=== PATIENT | female | born 1940 | race Caucasian/White ===

== ENCOUNTER 2017-02-19 08:48 | Day surgery (SDC) | payer MEDICARE, OTHER ==
[~2017-02-19 08:48] MED LIST: Lactated Ringers 1,000 ML IV SCH; Lidocaine 1%/Sod Bicarbonate in NS 8.4% 1 ML Syringe PRN; Sodium Chloride 0.9% 10 ML Syringe FLUSH PRN
--- NOTE | 2017-02-19 09:33 | PCM.PREANE ---
Preanesthetic Assessment - Anesthesia/Transfusion/Family Hx Family History of Anesthesia Reaction: No Transfusion History: No Prior Transfusion(s) - Review of Systems Pulmonary: No Symptoms (Quit smoking in 1981) Cardiovascular: No Symptoms (History of HTN) Other: Reports: Thyroid Problems (hypothyroid) - Physical Assessment NPO Status Date: 02/18/17 NPO Status Time: 18:00 Pulse: 65 O2 Sat by Pulse Oximetry: 94 Respiratory Rate: 14 Blood Pressure: 156/71 Temperature: 37.2 C Height: 1.55 m Weight: 62 kg ASA Class: 2 Mental Status: Alert & Oriented x3 - Lab Values: MRSA screen negative; All other labs reviewed and noted and within acceptable ranges to proceed with scheduled procedure. 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) Other OB/BYN History: breast surgery Musculoskeletal History: Reports: None Neurological History: Reports: None Psychiatric History: Reports: None Endocrine/Metabolic History: Reports: Hypothyroidism Hematologic History: Reports: None Immunologic History: Reports: None Oncologic (Cancer) History: Reports: None Dermatologic History: Reports: None - Past Surgical History Head Surgeries/Procedures: Reports: None HEENT Surgical History: Reports: Cataract Surgery, Tonsillectomy Cardiovascular Surgical History: Reports: None Respiratory Surgical History: Reports: None GI Surgical History: Reports: Colonoscopy Female Surgical History: Reports: None Male Surgical History: Reports: None Endocrine Surgical History: Reports: None Neurological Surgical History: Reports: None Musculoskeletal Surgical History: Reports: Shoulder Surgery Oncologic Surgical History: Reports: None Dermatological Surgical History: Reports: None - SUBSTANCE USE Smoking Status *Q: Former Smoker Second Hand Smoke Exposure: No Recreational Drug Use History: No - HOME MEDS Home Medications: Home Meds Acetaminophen/HYDROcodone [[place] 325-5 MG] 1 - 2 tab PO Q6H PRN #10 tablet 02/18 [Rx] Budesonide [Rhinocort Allergy] 2 spray NASBOTH DAILY 02/18/17 [History] Cetirizine HCl [Zyrtec] 10 mg PO DAILY 02/18/17 [History] Levothyroxine [Synthroid] 50 mcg PO MOTUWETHFRSA 02/18/17 [History] Levothyroxine [Synthroid] 100 mcg PO SHORE 02/18/17 [History] Losartan [Cozaar] 50 mg PO DAILY 02/18/17 [History] Tiotropium [Spiriva HandiHaler] 1 puff INH DAILY 02/18/17 [History] Vit C/Vit E Ac/Lut/Mineral 1 [Prosight with Lutein] 1 cap PO DAILY 02/18/17 [ History] - CURRENT (IN HOUSE) MEDS Current Meds: Current Medications Lactated Ringer's (Ringers, Lactated) 1,000 mls @ 125 mls/hr IV ASDIRECTED REE Stop: 02/19/17 23:00 Lidocaine/Sodium Bicarbonate (Buffered Lidocaine 1% In Ns 8.4%) 0.25 ml .XX ONETIME PRN PRN Reason: Prior to IV Start Stop: 02/19/17 18:00 Sodium Chloride (Saline Flush) 10 ml FLUSH ASDIRECTED PRN PRN Reason: Keep Vein Open Stop: 02/19/17 18:00
[2017-02-19] MEDS ORDERED: Bupivacaine 0.25% 30 ML SDV ONE (10:45)
[2017-02-19] MEDS ORDERED: Lidocaine 1% 30 ML SDV ONE (10:45)
[2017-02-19 12:41] VITALS: BP 159/69
--- NOTE | 2017-02-22 22:08 | PCM.OPNOTE ---
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
--- NOTE | 2017-02-22 22:59 | OR ---
DATE OF OPERATION: 02/19/2017 SURGEON: Lucas Mcintyre MD OPERATION PERFORMED: Left hand carpal tunnel release. PREOPERATIVE DIAGNOSIS: Left wrist median nerve compression neuropathy. POSTOPERATIVE DIAGNOSIS: Left wrist median nerve compression neuropathy. ANESTHESIA: Local only. DIRECTOR OF CULTURE: Nellie Myers PA-C. ANESTHESIA PROVIDER: None. Reason an patient observation assistant warranted was for retraction and closure ESTIMATED BLOOD LOSS: 5 mL. COMPLICATIONS: None. CONDITION: Stable. DESCRIPTION OF PROCEDURE: The patient was identified in the preoperative holding area. Proper site was marked and identified by the surgeon. The patient was taken back to the operative theater where the left wrist was sterilely prepped and draped in the usual sterile fashion. OR time-out was performed. The patient did not receive antibiotics as it was not indicated for soft tissue hand procedure. At this time, the left upper extremity was exsanguinated with an Esmarch. An Esmarch was then used on the forearm as a tourniquet. 1% lidocaine without epinephrine and 0.25% Marcaine without epinephrine was injected around the palmar cutaneous branch of the median nerve roughly 10 cm proximal to the proximal wrist crease. Next, the incisional site was anesthetized as well using Rojo's cardinal line and ulnar border of the fourth digit. Once the patient was anesthetized, incision was made. Blunt dissection was taken down to the palmar cutaneous fascia. Palmar cutaneous fascia was then incised with a [place] blade. Transverse carpal ligament was identified and a small rent was made in the transverse carpal ligament. A [place] elevator was then placed deep to the transverse carpal ligament and this was then resected all the way down just stopping short of the palmar arch and fat. At this time, attention was turned proximal. Tenotomy scissors was used. Ulnar tips were released at the forearm fascia and the transverse carpal ligament. At this time, it was found to be adequately released both proximally and distally. Adequate saline was then irrigated through the wound. 4-0 nylon simple suture was used for closure of the skin. The patient had sterile soft dressing applied and sent to the PACU in stable condition. MMODAL /[id number]
== END 2017-02-19 12:25 | disposition home or self-care (01) ==
LOC: JD.SDS 08:48
PROVIDERS: ATTEND Orthopaedic Surgery
DX: G56.02 Carpal tunnel syndrome, left upper limb (principal); I10 Essential (primary) hypertension; Z88.0 Allergy status to penicillin; Z91.048 Other nonmedicinal substance allergy status; Z98.890 Other specified postprocedural states; Z79.899 Other long term (current) drug therapy; Z87.891 Personal history of nicotine dependence
CPT/HCPCS: 64721; J3490

== ENCOUNTER 2019-02-22 15:17 | Emergency (ER) | payer MEDICARE, OTHER ==
[2019-02-22 15:27] VITALS: BP 152/80; PULSE 95
[2019-02-22] MEDS ORDERED: Sodium Chloride 0.9% 10 ML Syringe FLUSH PRN (15:56)
--- NOTE | 2019-02-22 15:57 | EDM.PDOC ---
<Jayleen Bangura - Last Filed: 02/22/19 16:28> ED HPI GENERAL MEDICAL PROBLEM - General Chief Complaint: Respiratory Problem Stated Complaint: RESPIRATORY ISSUES Time Seen by Provider: 02/22/19 15:27 Source of Information: Reports: Patient History Limitations: Reports: No Limitations - History of Present Illness INITIAL COMMENTS - FREE TEXT/NARRATIVE: Charline is a 78 year old female who presents to the ED for evaluation of a productive cough. She has had the cough for 2 months, along with the yellow sputum. She had a CT done 8 days ago on 02/14/19 that showed she had pneumonia. She was treated with levaquin, which she just finished today and there has been no improvement in her chest congestion and cough. She is using a duoneb nebulizer every 3 hours with only a brief period of relief. She feels very short of breath and earlier today felt that she couldn't breath. Patient also reports some sinus congestion, sore throat and chills. She denies any N/V/D. She is a past smoker who quit 30 years ago with a history of COPD. Currently she is not on any oxygen at home for her COPD. Onset: Gradual Onset Date: 12/23/18 Duration: Week(s):, Constant Location: Reports: Head, Chest Severity: Moderate Improves with: Reports: None Associated Symptoms: Reports: cough w sputum, Fever/Chills, Shortness of Breath Treatments LUMBER STRAIGHTENED: Reports: Breathing Treatments, Other (see below) Chest Pain Score (Numeric/FACES): 8 - Related Data Allergies Allergy/AdvReac Type Severity Reaction Status Date / Time nickel Allergy Rash Verified 02/22/19 15:27 Penicillins Allergy Swelling Verified 02/22/19 15:27 metals Allergy Rash Uncoded 02/22/19 15:27 Home Meds: Home Meds Budesonide [Rhinocort Allergy] 2 spray NASBOTH DAILY 02/18/17 [History] Losartan [Cozaar] 50 mg PO DAILY 02/18/17 [History] Tiotropium [Spiriva HandiHaler] 1 puff INH DAILY 02/18/17 [History] Vit C/Vit E Ac/Lut/Mineral 1 [Prosight with Lutein] 1 cap PO DAILY 02/18/17 [ History] Benzonatate [Tessalon Perle] 100 mg PO Q6H PRN 02/22/19 [History] Doxycycline [Vibramycin] 100 mg PO BID #20 cap 02/22/19 [Rx] Fexofenadine/Pseudoephedrine [Shu-D 24 Hour Tablet] 1 tab PO DAILY 02/22/19 [History] Levothyroxine 75 mcg PO ACBREAKFAST 02/22/19 [History] Rosuvastatin [Crestor] 5 mg PO DAILY 02/22/19 [History] Past Medical History HEENT History: Reports: Impaired Vision Cardiovascular History: Reports: Hypertension Respiratory History: Reports: None Genitourinary History: Reports: None 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 Musculoskeletal History: Reports: None Neurological History: Reports: None Psychiatric History: Reports: None Endocrine/Metabolic History: Reports: Hypothyroidism Hematologic History: Reports: None Immunologic History: Reports: None Oncologic (Cancer) History: Reports: None Dermatologic History: Reports: None - Past Surgical History Head Surgeries/Procedures: Reports: None HEENT Surgical History: Reports: Cataract Surgery, Tonsillectomy Cardiovascular Surgical History: Reports: None Respiratory Surgical History: Reports: None GI Surgical History: Reports: Colonoscopy Female Surgical History: Reports: None Endocrine Surgical History: Reports: None Neurological Surgical History: Reports: None Musculoskeletal Surgical History: Reports: Shoulder Surgery Oncologic Surgical History: Reports: None Dermatological Surgical History: Reports: None Social & Family History - Tobacco Use Smoking Status *Q: Never Smoker - Caffeine Use Caffeine Use: Reports: None - Recreational Drug Use Recreational Drug Use: No - Living Situation & Occupation Living situation: Reports: Occupation: Retired [employer] [facility] - Review of Systems Review Of Systems: See Below Constitutional: Reports: Fever, Chills, Diaphoresis HEENT: Reports: Sinus Problem (sinus congestion ), Throat Pain Respiratory: Reports: Shortness of Breath, Cough, Sputum. Denies: Wheezing, Pleuritic Chest Pain, Hemoptysis Cardiovascular: Reports: Orthopnea, PND. Denies: Chest Pain, Blood Pressure Problem, Dyspnea on Exertion Endocrine: Reports: No Symptoms GI/Abdominal: Reports: No Symptoms : Reports: No Symptoms Musculoskeletal: Reports: No Symptoms Skin: Reports: No Symptoms Neurological: Reports: No Symptoms Psychiatric: Reports: No Symptoms Hematologic/Lymphatic: Reports: No Symptoms Immunologic: Reports: No Symptoms Course - Vital Signs Last Recorded V/S: Last Vital Signs Temp 98.6 F 02/22/19 15:24 Pulse 95 02/22/19 15:24 Resp 19 02/22/19 15:24 BP 152/80 H 02/22/19 15:24 Pulse Ox 94 L 02/22/19 17:35 - Orders/Labs/Meds Labs: Laboratory Tests 02/22/19 02/22/19 02/22/19 Range/Units 16:10 16:10 16:10 WBC 12.62 H (3.98-10.04) K/mm3 RBC 4.10 (3.98-5.22) M/mm3 Hgb 13.2 (11.2-15.7) gm/dl Hct 38.0 (34.1-44.9) % MCV 92.7 (79.4-94.8) fl MCH 32.2 (25.6-32.2) pg MCHC 34.7 (32.2-35.5) g/dl RDW Std Deviation 49.8 H (36.4-46.3) fL Plt Count 533 H D (182-369) K/mm3 MPV 8.8 L (9.4-12.3) fl Neutrophils % (Manual) 66 H (40-60) % Band Neutrophils % 0 (0-10) % Lymphocytes % (Manual) 13 L (20-40) % Atypical Lymphs % 0 % Monocytes % (Manual) 5 (2-10) % Eosinophils % (Manual) 16 H (0.7-5.8) % Basophils % (Manual) 0 L (0.1-1.2) Platelet Estimate Increased Plt Morphology Comment See note RBC Morph Comment Normal Sodium 135 L (136-145) mEq/L Potassium 3.4 L (3.5-5.1) mEq/L Chloride 99 (98-107) mEq/L Carbon Dioxide 24 (21-32) mEq/L Anion Gap 15.4 H (5-15) BUN 14 (7-18) mg/dL Creatinine 0.8 (0.55-1.02) mg/dL Est Cr Clr Drug Dosing 43.03 mL/min Estimated GFR (MDRD) > 60 (>60) mL/min BUN/Creatinine Ratio 17.5 (14-18) Glucose 95 (83-115) mg/dL Calcium 8.5 (8.5-10.1) mg/dL Total Bilirubin 1.0 (0.2-1.0) mg/dL AST 25 (15-37) U/L ALT 25 (14-59) U/L Alkaline Phosphatase 69 (46-116) U/L Troponin I < 0.017 (0.00-0.056) ng/mL C-Reactive Protein 2.6 H* (<1.0) mg/dL Total Protein 6.8 (6.4-8.2) g/dl Albumin 3.5 (3.4-5.0) g/dl Globulin 3.3 gm/dL Albumin/Globulin Ratio 1.1 (1-2) Meds: Medications Discontinued Medications Generic Name Dose Route Start Last Admin Trade Name Freq PRN Reason Stop Dose Admin Albuterol 2.5 mg 02/22/19 17:35 02/22/19 17:44 Proventil Neb Soln NEB 02/22/19 17:36 2.5 mg ONETIME ONE Administration Methylprednisolone Sodium Succinate 125 mg 02/22/19 17:35 02/22/19 17:44 Solu-Medrol IVPUSH 02/22/19 17:36 125 mg ONETIME ONE Administration Sodium Chloride 10 ml 02/22/19 15:56 02/22/19 16:22 Saline Flush FLUSH 10 ml ASDIRECTED PRN Administration Keep Vein Open Departure - Departure Disposition: Home, Self-Care 01 Clinical Impression: Tracheobronchitis, COPD exacerbation - Discharge Information Prescriptions: Doxycycline [Vibramycin] 100 mg PO BID #20 cap Instructions: Chronic Obstructive Pulmonary Disease Exacerbation, [id number] Referrals: Phan Andrade MD [Primary Care Provider] - Forms: ED Department Discharge Additional Instructions: Doxycycline 100 mg twice daily for 10 days, prednisone 40 mg daily for 3 days and then 20 mg daily for the next 3 days, alternate duo neb treatments with albuterol neb treatments every 3-4 hours as discussed, dry air is going to make your cough and breathing worse, try get your humidifier working this evening if at all possible. Phenergan cough medication every 4-6 hours as needed. Try see Paz at the clinic in 2-3 days for recheck. Return to ED as needed if symptoms worsening in any way. The prescription for the doxycycline was sent electronic to [facility] the [facility]. <Marco Morales - Last Filed: 02/24/19 08:24> ED EXAM, GENERAL - Physical Exam Exam: See Below Course - Re-Assessments/Exams Free Text/Narrative Re-Assessment/Exam: 02/22/19 17:51 Initial hx and exam was done by ARMINDA Ivan student. I agree with hx and exam as documented. I have also examined and interviewed patient. Chest x-ray does not show infiltrate. Blood count normal. Sats are OK, the problem is her frequent annoying mostly nonproductive cough. Her symptoms at this time are compatible with exacerbation COPD, laryngeal tracheal bronchitis. I'm going put her back on prednisone. I'm going to have her alternate dual neb treatments with albuterol neb treatments at home. We'll prescribe more Phenergan with codeine cough medication that she can use with the Anca Drake previously prescribed. They have picked up a humidifier for the home but there is some part of it that is "not working. They need to get that figured out to help the dry air problem with her forced air heating. Departure - Departure Time of Disposition: 17:57 Condition: Fair
--- NOTE | 2019-02-22 16:36 | CR ---
Chest: Two views of the chest were obtained. Comparison: Prior chest x-ray of 08/30/15. Heart size and mediastinum are normal. Scoliosis is noted within the spine. Lungs are clear with no acute parenchymal change. Previous right shoulder surgery is noted. Scattered disc space narrowing within the spine is noted. Impression: 1. Findings as noted above. 2. Nothing acute is appreciated on two-view chest x-ray. Diagnostic code #2
[2019-02-22] MEDS ORDERED: methylPREDNISolone Sodium Succinate 125 MG/2 ML SDV IVPUSH ONE (17:35)
[2019-02-22] MEDS ORDERED: Albuterol 0.083% 2.5 MG/3 ML Neb Soln NEB ONE (17:35)
== END 2019-02-22 18:10 | disposition home or self-care (01) ==
LOC: JD.ED 15:17
DX: J44.1 Chronic obstructive pulmonary disease with (acute) exacerbation (principal); I10 Essential (primary) hypertension; E03.9 Hypothyroidism, unspecified; Z79.899 Other long term (current) drug therapy; Z88.0 Allergy status to penicillin; Z91.048 Other nonmedicinal substance allergy status
CPT/HCPCS: 36415; 71046; 80053; 84484; 85007; 85027; 86140; 93005; 94640; 96374; 99285; J2930; 99283

== ENCOUNTER 2020-01-29 20:14 | Emergency (ER) | payer MEDICARE, OTHER ==
[2020-01-29 20:35] VITALS: BP 133/56; PULSE 80
--- NOTE | 2020-01-29 20:50 | EDM.PDOC ---
ED HPI GENERAL MEDICAL PROBLEM - General Chief Complaint: Respiratory Problem Stated Complaint: COVID POSITIVE ISSUES BREATHING Time Seen by Provider: 01/29/20 20:46 Source of Information: Reports: Patient History Limitations: Reports: No Limitations - History of Present Illness INITIAL COMMENTS - FREE TEXT/NARRATIVE: 79-year-old female presents to the ED with gradually worsening shortness of breath over the last 3 to 4 days. She was diagnosed via [facility] with COVID-19 positivity 5 days ago. She has intermittent paroxysmal cough occasionally productive of the sputum. Continues to run low-grade fever with chills intermittently. Markedly decreased appetite. Generalized weakness and myalgia. Pulse oximetry at her home was around 90%. In the ED it is a 90% as well. He had pneumonia last year and is concerned she may have pneumonia at this time. Onset: Gradual Onset Date: 01/27/20 Duration: Day(s):, Getting Worse Location: Reports: Chest (Maria De Jesus worsening shortness of breath worse on exertion. Diagnosis COVID-19 positivity 5 days ago.) Quality: Reports: Other Severity: Moderate (Dyspnea and cough) Improves with: Reports: Rest Worsens with: Reports: Movement (Worse with exertion and movement.) Associated Symptoms: Reports: Cough, cough w sputum, Fever/Chills, Headaches, Loss of Appetite, Malaise, Shortness of Breath, Weakness. Denies: No Other Symptoms, Confusion, Chest Pain, Diaphoresis, Nausea/Vomiting, Rash, Seizure, Syncope Chest Pain Score (Numeric/FACES): 4 - Related Data Allergies Allergy/AdvReac Type Severity Reaction Status Date / Time nickel Allergy Rash Verified 01/29/20 20:35 Penicillins Allergy Swelling Verified 01/29/20 20:35 metals Allergy Rash Uncoded 01/29/20 20:35 Home Meds: Home Meds Losartan [Cozaar] 50 mg PO DAILY 02/18/17 [History] Tiotropium [Spiriva HandiHaler] 1 puff INH DAILY 02/18/17 [History] Vit C/Vit E/Lutein/Minerals 1 [Prosight with Lutein] 1 cap PO DAILY 02/18/17 [History] Levothyroxine 75 mcg PO ACBREAKFAST 02/22/19 [History] Rosuvastatin [Crestor] 5 mg PO DAILY 02/22/19 [History] Albuterol Sulfate [Albuterol Sulfate Hfa] 2 puff PO Q4HR PRN 03/11/19 [History] Albuterol/Ipratropium [DuoNeb 3.0-0.5 MG/3 ML] 1 puff PO Q6HR PRN 03/11/19 [History] Azelastine HCl 1 spray ALLI BID 03/11/19 [History] Fexofenadine [Shu] 180 mg PO DAILY 03/11/19 [History] Montelukast [Singulair] 10 mg PO BEDTIME 03/11/19 [History] Promethazine [Phenergan] 5 ml PO Q6HR PRN 03/11/19 [History] methylPREDNISolone [Methylprednisolone] 4 mg PO ASDIRECTED 03/11/19 [History] dexAMETHasone [Dexamethasone] 6 mg PO BID #8 tab 01/29/20 [Rx] Past Medical History HEENT History: Reports: Impaired Vision Cardiovascular History: Reports: Hypertension Respiratory History: Reports: Pneumonia, Recurrent Genitourinary History: Reports: None CRISIS MANAGER History: Reports: Other (See Below) Other CRISIS MANAGER History: breast surgery Musculoskeletal History: Reports: None Neurological History: Reports: None Psychiatric History: Reports: None Endocrine/Metabolic History: Reports: Hypothyroidism Hematologic History: Reports: None Immunologic History: Reports: None Oncologic (Cancer) History: Reports: None Dermatologic History: Reports: None - Infectious Disease History Infectious Disease History: Reports: Novel Coronavirus - Past Surgical History HEENT Surgical History: Reports: Cataract Surgery, Tonsillectomy Cardiovascular Surgical History: Reports: None Respiratory Surgical History: Reports: None GI Surgical History: Reports: Colonoscopy Female Surgical History: Reports: None Endocrine Surgical History: Reports: None Neurological Surgical History: Reports: None Musculoskeletal Surgical History: Reports: Shoulder Surgery Dermatological Surgical History: Reports: None Social & Family History - Tobacco Use Smoking Status *Q: Never Smoker Second Hand Smoke Exposure: No - Caffeine Use Caffeine Use: Reports: None - Recreational Drug Use Recreational Drug Use: No - Living Situation & Occupation Living situation: Reports: Occupation: Retired ED ROS GENERAL - Review of Systems Review Of Systems: See Below Constitutional: Reports: Fever, Malaise, Weakness, Fatigue, Decreased Appetite, Weight Loss. Denies: Chills HEENT: Reports: Glasses Respiratory: Reports: Shortness of Breath, Cough, Sputum (witsh sputum production). Denies: Wheezing, Pleuritic Chest Pain Cardiovascular: Reports: Blood Pressure Problem, Dyspnea on Exertion. Denies: Chest Pain, Claudication, Edema, Lightheadedness, Orthopnea Endocrine: Reports: Fatigue GI/Abdominal: Reports: Diarrhea, Decreased Appetite. Denies: Nausea, Stool Incontinence, Vomiting : Reports: No Symptoms Musculoskeletal: Reports: Neck Pain, Back Pain, Muscle Pain ( generalized my algia) Skin: Reports: No Symptoms Neurological: Reports: No Symptoms, Headache (with intial onset of illness but not now. ). Denies: Confusion, Dizziness, Numbness Psychiatric: Reports: No Symptoms Hematologic/Lymphatic: Reports: No Symptoms Immunologic: Reports: No Symptoms ED EXAM, GENERAL - Physical Exam Exam: See Below Exam Limited By: No Limitations General Appearance: Alert, WD/WN, Mild Distress, Other (temp is 36.7 and she doesot feel warm to palpation Heart rate is 80. respiratory rate is 20 with 02 sats of 90% on room air. Placed on 02 at 2L/min. BP is 133/56) Eye Exam: Bilateral Eye: Normal Inspection (no scleral icterus or bleparal pallor. ), PERRL Ears: Normal TMs Throat/Mouth: Other (tongues is mildy dry. ) Head: Atraumatic, Normocephalic Neck: Normal Inspection, Supple, Non-Tender, Full Range of Motion. No: Carotid Bruit, Lymphadenopathy (L), Lymphadenopathy (R) Respiratory/Chest: No Accessory Muscle Use, Respiratory Distress, Rhonchi (Keep the head rest.), Wheezing, Other (Expiratory wheeze. Active sounding cough at times.). No: Lungs Clear, Normal Breath Sounds, Rales ( Both upper and lower lung cope.) Cardiovascular: Normal Peripheral Pulses, Regular Rate, Rhythm, No Edema, No Gallop, No Rub, Systolic Murmur (She has a pansystolic ejection murmur best heard at the left lower sternal border at 2 out of 6.) Peripheral Pulses: 2+: Carotid (L), Carotid (R), Posterior Tibial (L), Posterior Tibial (R), Dorsalis Pedis (L), Dorsalis Pedis (R) GI/Abdominal: Normal Bowel Sounds, Soft, Non-Tender, No Organomegaly, No Abnormal Bruit, No Mass, Pelvis Stable. No: Guarding, Rigid, Rebound, Tender Back Exam: Normal Inspection, Full Range of Motion, Paraspinal Tenderness (Vertebral tenderness lumbar spine.), Vertebral Tenderness. No: CVA Tenderness (L), CVA Tenderness (R) Extremities: Normal Inspection ( Adjacent to the lumbar spine bilaterally.), Normal Range of Motion, Non-Tender, No Pedal Edema Neurological: Alert, Oriented, CN II-XII Intact, Normal Cognition, No Motor/Sensory Deficits Psychiatric: Normal Affect, Normal Mood Skin Exam: Warm, Dry, Intact, Normal Color, No Rash EKG INTERPRETATION EKG Date: 01/29/20 Time: 21:53 Rhythm: NSR Rate (Beats/Min): 71 P-Wave: Present (First-degree AV block) QRS: Other ([place] V1 V2 compared with old anteroseptal myocardial infarction.) ST-T: Other (T wave flattening lead II, I and aVL aVF and lead III and lead V6 nonspecific findings.) QT: Prolonged (Moderately prolonged) EKG Interpretation Comments: Abnormal ECG Course - Vital Signs Last Recorded V/S: Last Vital Signs Temp 36.7 C 01/29/20 20:32 Pulse 80 01/29/20 20:32 Resp 20 01/29/20 20:32 BP 133/56 L 01/29/20 20:32 Pulse Ox 90 L 01/29/20 20:32 - Orders/Labs/Meds Orders: Active Orders 24 hr Category Date Time Status Chest 1V Frontal [CR] Stat Exams 01/29/20 20:48 Taken Labs: Laboratory Tests 01/29/20 01/29/20 01/29/20 Range/Units 21:18 21:18 21:18 WBC 6.87 (3.98-10.04) K/mm3 RBC 3.84 L (3.98-5.22) M/mm3 Hgb 12.6 (11.2-15.7) gm/dl Hct 35.5 (34.1-44.9) % MCV 92.4 D (79.4-94.8) fl MCH 32.8 H (25.6-32.2) pg MCHC 35.5 (32.2-35.5) g/dl RDW Std Deviation 43.2 (36.4-46.3) fL Plt Count 502 H (182-369) K/mm3 MPV 9.1 L (9.4-12.3) fl Neut % (Auto) 79.8 H (34.0-71.1) % Lymph % (Auto) 8.3 L (19.3-51.7) % [place] % (Auto) 10.9 (4.7-12.5) % Eos % (Auto) 0.6 L (0.7-5.8) Baso % (Auto) 0.1 (0.1-1.2) % Neut # (Auto) 5.48 (1.56-6.13) K/mm3 Lymph # (Auto) 0.57 L (1.18-3.74) K/mm3 [place] # (Auto) 0.75 H (0.24-0.36) K/mm3 Eos # (Auto) 0.04 (0.04-0.36) K/mm3 Baso # (Auto) 0.01 (0.01-0.08) K/mm3 Manual Slide Review Abnormal smear PT 11.0 (9.7-11.7) SECONDS INR 1.03 APTT 32 H (22-31) SECONDS D-Dimer, Quantitative 0.47 (0.19-0.50) mg/L Sodium 130 L (136-145) mEq/L Potassium 3.1 L (3.5-5.1) mEq/L Chloride 95 L (98-107) mEq/L Carbon Dioxide 25 (21-32) mEq/L Anion Gap 13.1 (5-15) BUN 26 H (7-18) mg/dL Creatinine 1.1 H (0.55-1.02) mg/dL Est Cr Clr Drug Dosing 29.30 mL/min Estimated GFR (MDRD) 48 (>60) mL/min BUN/Creatinine Ratio 23.6 H (14-18) Glucose 113 (83-115) mg/dL Lactic Acid (0.4-2.0) mmol/L Calcium 7.8 L D (8.5-10.1) mg/dL Magnesium 1.9 (1.8-2.4) mg/dl Ferritin (8-252) ng/ml Total Bilirubin 0.7 (0.2-1.0) mg/dL AST 41 H (15-37) U/L ALT 28 (14-59) U/L Alkaline Phosphatase 49 (46-116) U/L Lactate Dehydrogenase 316 H (81-234) U/L CK-MB (CK-2) 3.0 (0-3.6) ng/ml Troponin I < 0.017 (0.00-0.056) ng/mL C-Reactive Protein 15.7 H* (<1.0) mg/dL NT-Pro-B Natriuret Pep (0-450) pg/mL Total Protein 6.3 L (6.4-8.2) g/dl Albumin 2.9 L (3.4-5.0) g/dl Globulin 3.4 gm/dL Albumin/Globulin Ratio 0.9 L (1-2) 01/29/20 01/29/20 01/29/20 Range/Units 21:18 21:18 21:18 WBC (3.98-10.04) K/mm3 RBC (3.98-5.22) M/mm3 Hgb (11.2-15.7) gm/dl Hct (34.1-44.9) % MCV (79.4-94.8) fl MCH (25.6-32.2) pg MCHC (32.2-35.5) g/dl RDW Std Deviation (36.4-46.3) fL Plt Count (182-369) K/mm3 MPV (9.4-12.3) fl Neut % (Auto) (34.0-71.1) % Lymph % (Auto) (19.3-51.7) % [place] % (Auto) (4.7-12.5) % Eos % (Auto) (0.7-5.8) Baso % (Auto) (0.1-1.2) % Neut # (Auto) (1.56-6.13) K/mm3 Lymph # (Auto) (1.18-3.74) K/mm3 [place] # (Auto) (0.24-0.36) K/mm3 Eos # (Auto) (0.04-0.36) K/mm3 Baso # (Auto) (0.01-0.08) K/mm3 Manual Slide Review PT (9.7-11.7) SECONDS INR APTT (22-31) SECONDS D-Dimer, Quantitative (0.19-0.50) mg/L Sodium (136-145) mEq/L Potassium (3.5-5.1) mEq/L Chloride (98-107) mEq/L Carbon Dioxide (21-32) mEq/L Anion Gap (5-15) BUN (7-18) mg/dL Creatinine (0.55-1.02) mg/dL Est Cr Clr Drug Dosing mL/min Estimated GFR (MDRD) (>60) mL/min BUN/Creatinine Ratio (14-18) Glucose (83-115) mg/dL Lactic Acid 0.7 (0.4-2.0) mmol/L Calcium (8.5-10.1) mg/dL Magnesium (1.8-2.4) mg/dl Ferritin 345 H (8-252) ng/ml Total Bilirubin (0.2-1.0) mg/dL AST (15-37) U/L ALT (14-59) U/L Alkaline Phosphatase (46-116) U/L Lactate Dehydrogenase (81-234) U/L CK-MB (CK-2) (0-3.6) ng/ml Troponin I (0.00-0.056) ng/mL C-Reactive Protein (<1.0) mg/dL NT-Pro-B Natriuret Pep 144 (0-450) pg/mL Total Protein (6.4-8.2) g/dl Albumin (3.4-5.0) g/dl Globulin gm/dL Albumin/Globulin Ratio (1-2) Meds: Medications Discontinued Medications Generic Name Dose Route Start Last Admin Trade Name Freq PRN Reason Stop Dose Admin Acetaminophen 650 mg 01/29/20 21:02 01/29/20 21:14 Tylenol PO 650 mg Q4H PRN Administration Pain Dexamethasone 6 mg 01/29/20 22:30 01/29/20 22:52 Dexamethasone IVPUSH 01/29/20 22:31 6 mg ONETIME ONE Administration Dextrose/Sodium Chloride 1,000 mls @ 500 mls/hr 01/29/20 21:00 01/29/20 21:14 Dextrose 5%-Normal Saline IV 500 mls/hr ASDIRECTED REE Administration - Radiology Interpretation Free Text/Narrative:: 79-year-old female presents to the ED for evaluation of COVID-19 illness and increased dyspnea. Patient was diagnosed 3 days ago and and was tested 5 days ago. She is probably had symptoms dating back to January 19. She is afebrile. Mild headache continues to have decreased appetite feels she is getting adequate amounts of fluids. No diarrhea. Paroxysmal cough. Occasionally productive of some yellowish sputum. Of note she just completed a Z-Eris for bronchitis. She has a history of pneumonia x2 in the last year is currently on home oxygen as she has a concentrator at home. She is usually using 2 L/min. On 2 L/min in the ED she is satting 96 to 98%. Plan she will have a chest x-ray performed and labs including COVID-19 related labs such as ferritin, LDH, d-dimer and a troponin and ECG. - Re-Assessments/Exams Free Text/Narrative Re-Assessment/Exam: 01/29/20 21:58 x-ray done portably reveals bilateral infiltrates involving the right middle lobe and lower lobe as the left lower lobe compatible with viral pneumonia and COVID-19 illness. Pneumothorax. No pleural effusions. Evidence of arthritic change in both shoulders. Cardiac silhouette is normal 01/29/20 22:21 White blood cell count is 6.87 with 80 percent neutrophils on the auto differential. Hemoglobin is 12.6 with hematocrit of 35.5. Platelet count 502,000 elevated. The slide review is pending. PT is 11.0 with an INR of 1.03. PTT is 32 with a d-dimer of 0.47. Sodium is slightly low at 130 with a potassium low at 3.1. Chloride 95 with a bicarb of 25. Anion gap is 13.1 with a BUN of 26 and a creatinine of 1.1. GFR is 48 with a glucose of 113. Lactic acid is 0.7. Calcium low at 7.8 from not eating. Magnesium normal at 1.9 serum ferritin elevated at 345. Bilirubin is 0.7 with an AST slightly elevated at 41 normal ALT at 28 and normal alk phosphatase at 49. CK-MB fraction is 3.0 and troponin I is less than 0.017. C-reactive protein is markedly elevated at 15.7. BNP is 144 with a total protein of 6.3. Albumin fraction is slightly low at 2.9. Departure - Departure Time of Disposition: 22:30 Disposition: Home, Self-Care 01 Condition: Fair Clinical Impression: COVID-19 determined by clinical diagnostic criteria, Low oxygen saturation - Discharge Information *PRESCRIPTION DRUG MONITORING PROGRAM REVIEWED*: Not Applicable *COPY OF PRESCRIPTION DRUG MONITORING REPORT IN PATIENT HANNAH: Not Applicable Prescriptions: dexAMETHasone [Dexamethasone] 6 mg PO BID #8 tab Instructions: COVID-19, Prevent the Spread of COVID-19 if You Are Sick - [facility] Referrals: Phan Andrade MD [Primary Care Provider] - Forms: ED Department Discharge Additional Instructions: Evaluation in the emergency room today in regards to known COVID-19 illness diagnosed 3 ago days ago after being tested 5 days ago. Symptoms of COVID-19 illness appear to have started on January 19. This means you are on day 9 of current illness. Most patients feel the worst between days 8 and 10 of the illness. You will still have to self quarantine until next Thursday morning. Chest x-ray done today reveals the typical pattern we are seeing with a viral pneumonia in both lower lobes on chest x-ray. Your lab tests reveal a normal white count and no signs of a bacterial pneumonia. There is for inflammation such as the serum ferritin and LDH are mildly elevated. Your d- dimer which is a blood clotting measuring stick is normal. There is also no evidence of any heart related illness. Since you have oxygen at home I would advise you to continue on oxygen at 2 L/min by nasal cannula. As you indicate you may have are having some troubles with your oxygen concentrator generating oxygen. Please call [email or web address] tomorrow to have them come and take a look at it. I am going to place you on medication dexamethasone. You were given the first dose 6 mg intravenously in the ED. You will take a 6 mg tablet twice daily for the next 4 days ideally with breakfast and supper to help reduce inflammation. You would need to return to medical care if you develop wheezing shortness of breath in spite of oxygen supplementation at home. Otherwise by the sounds of things you are doing very well with the COVID-19 illness. You will start to improve usually within the next 2 and half to 3 days. Sepsis Event Note (ED) - Evaluation Sepsis Screening Result: No Definite Risk - My Orders Last 24 Hours: My Active Orders 01/29/20 20:48 Chest 1V Frontal [CR] Stat - Assessment/Plan Last 24 Hours: My Active Orders 01/29/20 20:48 Chest 1V Frontal [CR] Stat
[2020-01-29] MEDS ORDERED: Dextrose 5%-0.9% NaCl 1,000 ML IV SCH (21:00)
[2020-01-29] MEDS ORDERED: Acetaminophen 325 MG Tab PO PRN (21:02)
[2020-01-29] MEDS ORDERED: Dexamethasone 4 MG/ML SDV IVPUSH ONE (22:30)
--- NOTE | 2020-02-29 08:47 | CR ---
PROCEDURE INFORMATION: Exam: XR Chest, 1 View Exam date and time: 01/29/2020 8:44 PM Age: 79 years old Clinical indication: Shortness of breath TECHNIQUE: Imaging protocol: XR of the chest Views: 1 view. COMPARISON: CT Chest wo Cont 11/10/2019 9:31 AM FINDINGS: Lungs: Right base atelectasis. Patchy consolidation at the left lung base. Pleural space: Unremarkable. No pleural effusion. No pneumothorax. Heart/Mediastinum: Unremarkable. No cardiomegaly. Bones/joints: Degenerative arthritis of the shoulders bilaterally, worse on the right. IMPRESSION: 1. Patchy consolidation left lung base. 2. Right base atelectasis. Thank you for allowing us to participate in the care of your patient. Dictated and Authenticated by: Lucia Hoffmann MD 02/28/2020 8:21 PM Central Time ([place] & [place]) [place]
== END 2020-01-29 23:10 | disposition home or self-care (01) ==
LOC: JD.ED 20:14
DX: U07.1 COVID-19 (principal); R09.02 Hypoxemia; I44.0 Atrioventricular block, first degree; I10 Essential (primary) hypertension; E03.9 Hypothyroidism, unspecified; Z88.0 Allergy status to penicillin; Z91.048 Other nonmedicinal substance allergy status; Z79.899 Other long term (current) drug therapy
CPT/HCPCS: 36415; 71045; 80053; 82553; 82728; 83605; 83615; 83735; 83880; 84484; 85025; 85379; 85610; 85730; 86140; 93005; 96361; 96374; 99285; A9270; J1100; J7042; 93010; 99284

== ENCOUNTER 2024-12-20 15:59 | Emergency (ER) | payer MEDICARE, OTHER ==
[2024-12-20] MEDS: Sodium Chloride 0.9% 10 ML Syringe FLUSH PRN (16:40)
[2024-12-20 17:10] LABS: BASOPHILS ABSOLUTE AUTO 0.0 K/mm3 (0.0-0.2); BASOPHILS PERCENT AUTO 0.5 % (0.0-1.0); EOSINOPHILS ABSOLUTE AUTO 0.1 K/mm3 (0.0-0.4); EOSINOPHILS PERCENT AUTO 1.0 % (0.0-6.0); IMMATURE GRAN ABSOLUTE AUTO 0.01 K/mm3 (0.00-0.05); IMMATURE GRAN PERCENT AUTO 0.2 % (0.0-0.4); LYMPHOCYTES ABSOLUTE AUTO 1.2 K/mm3 (1.0-4.8); LYMPHOCYTES PERCENT AUTO 20.4 % (24.0-44.0); MEAN PLATELET VOLUME 8.7 fl (9.4-12.3); MONOCYTES ABSOLUTE AUTO 0.7 K/mm3 (0.0-0.8); MONOCYTES PERCENT AUTO 11.7 % (0.0-8.0); NEUTROPHILS ABSOLUTE AUTO 3.9 K/mm3 (1.8-7.7); NEUTROPHILS PERCENT AUTO 66.2 % (41.0-71.0); NRBC ABSOLUTE 0.00 (0.00-0.02); NRBC PERCENT 0.0 % (0.0-0.2); PLATELET COUNT,PLT 304 K/mm3 (150-400); RED BLOOD CELL COUNT 2.80 M/mm3 (4.10-5.30); WHITE BLOOD CELL COUNT,WBC 5.82 K/mm3 (3.9-11.3)
[2024-12-20 17:11] LABS: A/G RATIO 1.3 (1-2); ALANINE AMINOTRANSFERASE,ALT 25.0 U/L (14-59); ASPARTATE AMNIOTRANSFERASE,AST 33.0 U/L (15-37); BILIRUBIN TOTAL 0.9 mg/dL (0.2-1.0); BLOOD UREA NITROGEN,BUN 29.0 mg/dL (7-18); CARBON DIOXIDE,CO2 23.0 mEq/L (21-32); CHLORIDE,CL 97.0 mEq/L (98-107); CREATININE 1.8 mg/dL (0.55-1.02); EST CRCL DRUG DOSING (CG) 16.41 mL/min; ESTIMATED GFR 27.0 mL/min (>60); GLUCOSE RANDOM 133.0 mg/dL (70-99); POTASSIUM,K 4.5 mEq/L (3.5-5.1); PROTEIN TOTAL,TP 6.9 g/dl (6.4-8.2); SODIUM,NA 133.0 mEq/L (136-145); TROPONIN I HIGH SENSITIVITY 9.0 pg/mL (<=51)
[2024-12-20 18:14] VITALS: BP 130/51; PULSE 94
== END 2024-12-20 17:45 | disposition home or self-care (01) ==
LOC: JD.ED 15:59
DX: E86.0 Dehydration (principal); I12.9 Hypertensive chronic kidney disease with stage 1 through stage 4 chronic kidney disease, or unspecified chronic kidney disease; R25.2 Cramp and spasm; E03.9 Hypothyroidism, unspecified; N18.9 Chronic kidney disease, unspecified; Z79.890 Hormone replacement therapy; Z79.899 Other long term (current) drug therapy; Z88.0 Allergy status to penicillin; Z88.8 Allergy status to other drugs, medicaments and biological substances; Z86.16 Personal history of COVID-19
CPT/HCPCS: 36415; 71045; 80053; 83735; 84484; 85025; 93005; 96360; 99284; A9270; J7030